=== PATIENT | female | born 1990 | race Caucasian/White ===

== ENCOUNTER 2020-09-02 12:23 | Outpatient (CLI) | payer OTHER ==
[~2020-09-02] VITALS: Ht 157.5 cm; Wt 81.8 kg
[~2020-09-02 12:23] MED LIST: DOCU240C31 PO; FERR325T17 PO; FLUO20TA25 PO; IBUP-1222 PO; NORG1TAB6 PO; OXYC1TAB14 PO
[2020-09-02] MEDS ORDERED: LACTATED RINGERS 1,000 ML IV SCH (12:30)
[2020-09-02] MEDS ORDERED: KETOROLAC 30 MG/1 ML IM ONE (12:30)
[2020-09-02] MEDS ORDERED: LACTATED RINGERS 1,000 ML IVBOLUS ONE (12:30)
[2020-09-02] MEDS ORDERED: KETOROLAC 30 MG/1 ML ONE (12:35)
[2020-09-02 12:56] VITALS: BP 101/46
[2020-09-02] MEDS ORDERED: KETOROLAC 30 MG/1 ML IVPush ONE (13:00)
[2020-09-02 13:02] LABS: MICROSCOPIC NOT IND
[2020-09-02] MEDS ORDERED: PREN1TAB10 PO (14:45)
== END 2020-09-02 14:55 | disposition home or self-care (01) ==
LOC: LDOP 12:23 → MERGE 12:23 → LDOP 14:55
PROVIDERS: ATTEND Obstetrics & Gynecology
DX: O26.892 Other specified pregnancy related conditions, second trimester (principal); R10.32 Left lower quadrant pain; M54.9 Dorsalgia, unspecified; Z3A.24 24 weeks gestation of pregnancy
CPT/HCPCS: 76770; 81003; 87086; 96361; 96374; 99211; J1885; J7120; 96360; G0463

== ENCOUNTER 2020-12-10 05:09 | Inpatient (IN) | payer OTHER ==
[~2020-12-10] VITALS: Ht 157.5 cm; Wt 87.0 kg
[~2020-12-10 05:09] MED LIST changes: +PREN1TAB10 PO
[2020-12-10] MEDS ORDERED: LIDOCAINE 1%, 20ML ONE (05:25)
[2020-12-10] MEDS ORDERED: NEWBORN KIT ONE (05:25)
[2020-12-10] MEDS ORDERED: MISOPROSTOL 200 MCG TABLET ONE (05:26)
[2020-12-10] MEDS ORDERED: OXYTOCIN 30U/ 0.9% NaCL 500ML 500 ML ONE (05:26)
[2020-12-10] MEDS ORDERED: FENTANYL PF 100 MCG/2ML IVPush PRN (05:30)
[2020-12-10] MEDS ORDERED: FENTANYL PF 100 MCG/2ML IV PRN (05:30)
[2020-12-10] MEDS ORDERED: OXYTOCIN 30U/ 0.9% NaCL 500ML 500 ML IV ONE (05:30)
[2020-12-10] MEDS ORDERED: TERBUTALINE 1 MG/ML, 1ML IVPush PRN (05:30)
[2020-12-10] MEDS ORDERED: CALCIUM CARBONATE 500 MG TAB.CHEW PO PRN (05:30)
[2020-12-10] MEDS ORDERED: D5%-LACTATED RINGERS 1,000 ML IV SCH (05:30)
[2020-12-10] MEDS ORDERED: OXYTOCIN 30U/ 0.9% NaCL 500ML 500 ML IV PRN (05:30)
[2020-12-10] MEDS ORDERED: TERBUTALINE 1 MG/ML, 1ML SQ PRN (05:30)
[2020-12-10] MEDS: LACTATED RINGERS 1,000 ML IV SCH ×2 (05:35→06:34)
[2020-12-10] MEDS ORDERED: ACETAMINOPHEN 325 MG TABLET ONE (05:52)
[2020-12-10] MEDS: ACETAMINOPHEN 325 MG TABLET PO PRN (05:54)
[2020-12-10 05:55] VITALS: BP 116/68
[2020-12-10] MEDS ORDERED: PLEASE ENTER HEIGHT AND WEIGHT MC SCH (06:00)
[2020-12-10 06:13] LABS: BASOPHILS % (AUTO) 0 % (0-1); EOSINOPHILS % (AUTO) 1 % (1-7); LYMPHOCYTES % (AUTO) 23 % (22-44); MEAN CORPUSCULAR HEMOGLOBIN 20.7 pg (27.0-34.8); MEAN PLATELET VOLUME 11.1 fL (7.4-10.4); MONOCYTES % (AUTO) 7 % (2-9); NEUTROPHILS % (AUTO) 69 % (42-75); PLATELET COUNT 240 x10^3/uL (130-400); RED BLOOD COUNT 4.53 x10^6/uL (3.82-5.3); RED CELL DISTRIBUTION WIDTH 19.1 % (9.6-15.2)
[2020-12-10] MEDS ORDERED: FENTANYL/BUPIV./NS/PF 250 ML EPIDCONT ONE (06:18)
[2020-12-10] MEDS ORDERED: EPHEDRINE 50 MG/ML, 1ML IVPush PRN (07:00)
[2020-12-10] MEDS ORDERED: LACTATED RINGERS 1,000 ML IVBOLUS PRN (07:00)
[2020-12-10] MEDS ORDERED: FENTANYL/BUPIV./NS/PF 250 ML EPIDCONT SCH (07:00)
[2020-12-10] MEDS ORDERED: NALOXONE 0.4 MG/ML, 1ML IVPush PRN (07:00)
[2020-12-10] MEDS ORDERED: LACTATED RINGERS 1,000 ML IV SCH (07:00)
[2020-12-10] MEDS ORDERED: ONDANSETRON 2MG/ML, 2ML ONE (09:26)
[2020-12-10] MEDS ORDERED: ONDANSETRON 2MG/ML, 2ML IVPush PRN (09:30)
[2020-12-10] MEDS ORDERED: METHYLERGONOVINE 0.2 MG/ML IM ONE (10:14)
[2020-12-10] MEDS ORDERED: CARBOPROST TROMETHAMINE 250 MCG/ML, 1ML IM PRN (11:30)
[2020-12-10] MEDS ORDERED: ACETAMINOPHEN 325 MG TABLET PO PRN (11:30)
[2020-12-10] MEDS ORDERED: METHYLERGONOVINE 0.2 MG/ML IM PRN (11:30)
[2020-12-10] MEDS ORDERED: MISOPROSTOL 200 MCG TABLET PR PRN (11:30)
[2020-12-10] MEDS ORDERED: SIMETHICONE 80 MG CHEW TAB PO PRN (11:30)
[2020-12-10] MEDS: OXYcodone/APAP 5/325MG TABLET PO PRN ×3 (12:26→21:24)
[2020-12-10] MEDS: IBUPROFEN 600 MG TABLET PO PRN ×2 (12:27→21:24)
[2020-12-10] MEDS: OXYTOCIN 30U/ 0.9% NaCL 500ML 500 ML IV SCH ×2 (12:28→21:30)
[2020-12-10 18:47] LABS: BASOPHILS % (AUTO) 0 % (0-1); EOSINOPHILS % (AUTO) 1 % (1-7); LYMPHOCYTES % (AUTO) 17 % (22-44); MEAN CORPUSCULAR HEMOGLOBIN 20.6 pg (27.0-34.8); MEAN CORPUSCULAR HGB CONC 31.1 g/dL (32.4-35.8); MEAN PLATELET VOLUME 10.8 fL (7.4-10.4); MONOCYTES % (AUTO) 7 % (2-9); NEUTROPHILS % (AUTO) 76 % (42-75); PLATELET COUNT 207 x10^3/uL (130-400); RED BLOOD COUNT 4.03 x10^6/uL (3.82-5.3); RED CELL DISTRIBUTION WIDTH 18.8 % (9.6-15.2)
[2020-12-10 19:05] VITALS: BP 97/63
[2020-12-10] MEDS: DOCUSATE 100 MG CAPSULE PO PRN (21:24)
[2020-12-11 00:25] VITALS: BP 91/55
[2020-12-11 03:25] VITALS: BP 99/65
[2020-12-11] MEDS: IBUPROFEN 600 MG TABLET PO PRN ×4 (03:27→23:19)
[2020-12-11] MEDS: OXYcodone/APAP 5/325MG TABLET PO PRN ×4 (03:27→18:11)
[2020-12-11] MEDS: OXYTOCIN 30U/ 0.9% NaCL 500ML 500 ML IV SCH ×2 (07:30→17:30)
[2020-12-11] MEDS: PRENATAL VIT/IRON/FA 1 EACH TABLET PO SCH (07:45)
[2020-12-11 08:17] VITALS: BP 92/41
[2020-12-11] MEDS: FERROUS GLUCONATE 324 MG TABLET PO SCH (17:00)
[2020-12-11 21:00] VITALS: BP 105/68
[2020-12-11] MEDS: DOCUSATE 100 MG CAPSULE PO PRN (21:08)
[2020-12-11] MEDS: ACETAMINOPHEN 325 MG TABLET PO PRN (21:08)
[2020-12-12] MEDS: OXYcodone/APAP 5/325MG TABLET PO PRN (01:56)
[2020-12-12] MEDS: OXYTOCIN 30U/ 0.9% NaCL 500ML 500 ML IV SCH (03:49)
[2020-12-12] MEDS: IBUPROFEN 600 MG TABLET PO PRN ×2 (05:29→11:54)
[2020-12-12 08:00] VITALS: BP 101/64
[2020-12-12] MEDS: DOCUSATE 100 MG CAPSULE PO PRN (08:16)
[2020-12-12] MEDS: PRENATAL VIT/IRON/FA 1 EACH TABLET PO SCH (08:16)
[2020-12-12] MEDS: FERROUS GLUCONATE 324 MG TABLET PO SCH (08:20)
[2020-12-12] MEDS: ACETAMINOPHEN 325 MG TABLET PO PRN (10:01)
[2020-12-12] MEDS ORDERED: DOCU-131 PO (10:13)
[2020-12-12] MEDS ORDERED: IBUP-1222 PO (10:15)
[2020-12-12] MEDS ORDERED: FERR325T18 PO ×2 (10:18→10:22)
[2020-12-12] MEDS ORDERED: FERR324T18 PO (10:18)
== END 2020-12-12 12:45 | disposition home or self-care (01) | DRG 807 ==
LOC: LDIP 05:09 → 2NW 13:21
PROVIDERS: ADMIT Obstetrics & Gynecology; ATTEND Obstetrics & Gynecology
PROC: 10E0XZZ Delivery of Products of Conception, External Approach (ICD-10-PCS; principal; 2020-12-10)
PROC: 10907ZC Drainage of Amniotic Fluid, Therapeutic from Products of Conception, Via Natural or Artificial Opening (ICD-10-PCS; 2020-12-10)
PROC: 0UQMXZZ Repair Vulva, External Approach (ICD-10-PCS; 2020-12-10)
PROC: 3E0P7VZ Introduction of Hormone into Female Reproductive, Via Natural or Artificial Opening (ICD-10-PCS; 2020-12-10)
PROC: 3E0R3BZ Introduction of Anesthetic Agent into Spinal Canal, Percutaneous Approach (ICD-10-PCS; 2020-12-10)
PROC: 00HU33Z Insertion of Infusion Device into Spinal Canal, Percutaneous Approach (ICD-10-PCS; 2020-12-10)
DX: O69.81X0 Labor and delivery complicated by cord around neck, without compression, not applicable or unspecified (principal); Z37.0 Single live birth; O99.02 Anemia complicating childbirth; D50.9 Iron deficiency anemia, unspecified; O71.82 Other specified trauma to perineum and vulva; Q76.0 Spina bifida occulta; Z3A.39 39 weeks gestation of pregnancy; Z20.822 Contact with and (suspected) exposure to COVID-19
CPT/HCPCS: 36415; 85025; 86592; 86850; 86900; 87635; G0378; J2405; J2590; J7120